=== PATIENT | male | born 1980 | race Caucasian/White ===

== ENCOUNTER 2016-05-20 11:09 | Emergency (ER) | payer BC ==
[2016-05-20] MEDS ORDERED: ASPIRIN 81 MG TABLET, CHEWABLE PO ONE (11:12)
--- NOTE | 2016-05-20 11:13 | ER Document Report ---
ED Medical Screen (RME) - General Stated Complaint: CHEST PAIN Mode of Arrival: Wheelchair Information source: Patient Notes: Patient presents with chest pain. Reports has been going on for a while. Reports he was evaluated previously for chest pain before and he was diagnosed with anxiety. No history of cardiac disease I have greeted and performed a rapid initial assessment of this patient. A comprehensive ED assessment and evaluation of the patient, analysis of test results and completion of the medical decision making process will be conducted by additional ED providers. - Related Data Allergies/Adverse Reactions: No Known Allergies Allergy (Unverified 05/20/16 11:28) Physical Exam - Vital signs Vitals: Temp Pulse Resp BP Pulse Ox 98.1 F 104 H 16 145/99 H 97 05/20/16 11:21 05/20/16 11:21 05/20/16 11:21 05/20/16 11:21 05/20/16 11:21 Course - Vital Signs Vital signs: Temp Pulse Resp BP Pulse Ox 98.1 F 104 H 16 145/99 H 97 05/20/16 11:21 05/20/16 11:21 05/20/16 11:21 05/20/16 11:21 05/20/16 11:21
--- NOTE | 2016-05-20 12:56 | EKG REPORT ---
SEVERITY:- ABNORMAL ECG - SINUS RHYTHM LEFT ATRIAL ABNORMALITY LEFT VENTRICULAR HYPERTROPHY : Confirmed by: Latha Isidro MD 20-May-2016 12:54:47
--- NOTE | 2016-05-20 13:17 | ER Document Report ---
ED Cardiac - General Chief Complaint: Chest Pain Stated Complaint: CHEST PAIN Time seen by provider: 13:07 Mode of Arrival: Wheelchair Information source: Patient Notes: 36 yo smoker, non htn, non dm, non hyperlipedic. FH:neg CAD. c/o intermittent different types of irritating bilateral chest aching, right or left, switches sides. Each episode lasts 15-30 seconds for 4-5 days, associated with tired, fatigue, cold sweat 2 days ago. This has happened off and on several year, but this time it is lasting longer. Nausea 3 days ago. Evaluated in past with EKG and Chest xray and told it was anxiety ([facility]) Feels better after a few beers, 6 daily beer before dinner. Does not consider himself an alcoholic. No drugs. No abd pain. Wants to make sure he is OK. No PCP. At this time he said he had some discomfort in his right lower lateral chest. No sudden onset, No tearing sensation, No leg pain, No SOB, No worsening of the pain in the last 24 hours, has been the same type/intensity for 4 days. TRAVEL OUTSIDE OF THE [place] IN LAST 30 DAYS: No - Related Data Allergies/Adverse Reactions: No Known Allergies Allergy (Unverified 05/20/16 11:28) Past Medical History - General Information source: Patient - Social History Smoking Status: Current Every Day Smoker Chew tobacco use (# tins/day): No Frequency of alcohol use: daily - 6 beers before dinner Drug Abuse: None Lives with: Spouse/Significant other Family History: Reviewed & Not Pertinent Patient has suicidal ideation: No Patient has homicidal ideation: No - Medical History Medical History: Negative Renal/ Medical History: Denies: Hx Peritoneal Dialysis Surgical Hx: Negative Review of Systems - Review of Systems Constitutional: No symptoms reported EENT: No symptoms reported Cardiovascular: See HPI Respiratory: No symptoms reported Gastrointestinal: No symptoms reported Genitourinary: No symptoms reported Male Genitourinary: No symptoms reported Musculoskeletal: No symptoms reported Skin: No symptoms reported Hematologic/Lymphatic: No symptoms reported Neurological/Psychological: No symptoms reported Physical Exam - Vital signs Vitals: Temp Pulse Resp BP Pulse Ox 98.1 F 104 H 16 145/99 H 97 05/20/16 11:21 05/20/16 11:21 05/20/16 11:21 05/20/16 11:21 05/20/16 11:21 Interpretation: Normal - General General appearance: Appears well, Alert In distress: None - HEENT Head: Normocephalic, Atraumatic Eyes: Normal Conjunctiva: Normal Pupils: PERRL Mucous membranes: Normal Neck: Supple. No: Lymphadenopathy - Respiratory Respiratory status: No respiratory distress Chest status: Nontender Breath sounds: Normal Chest palpation: Normal - Cardiovascular Rhythm: Regular Heart sounds: Normal auscultation Murmur: No - Abdominal Inspection: Normal Distension: No distension Bowel sounds: Normal Tenderness: Nontender. No: Tender Organomegaly: No organomegaly - Back Back: Normal, Nontender. No: CVA tenderness - Extremities General upper extremity: Normal inspection, Nontender, Normal color, Normal ROM , Normal temperature General lower extremity: Normal inspection, Nontender, Normal color, Normal ROM , Normal temperature, Normal weight bearing. No: Arvind's sign - Neurological Neuro grossly intact: Yes Cognition: Normal Orientation: AAOx4 [place] Coma Scale Eye Opening: Spontaneous [place] Coma Scale Verbal: Oriented [place] Coma Scale Motor: Obeys Commands Demetri Coma Scale Total: 15 Speech: Normal Motor strength normal: LUE, RUE, LLE, RLE Sensory: Normal - Psychological Associated symptoms: Normal affect, Normal mood - Skin Skin Temperature: Warm Skin Moisture: Dry Skin Color: Normal Skin irregularity: negative: Rash Course - Re-evaluation Re-evalutation: 05/20/16 16:[address] Hayes concerning the history, physical exam, EKG, and labs. Doubt PE, aortic dissection, ACS, or PE due to no sudden onset of pain, no worsening of pain over the last 24 hours, no travel or cancer hx. Will have pt schedule appointment with family pracitice provider for follow up. Advised him to take 81 mg aspirin per day, stop smoking, and decrease the amount of alcohol that he drinks per day. Pain free at this time. - Vital Signs Vital signs: Temp Pulse Resp BP Pulse Ox 98.4 F 90 18 138/96 H 98 05/20/16 17:02 05/20/16 17:02 05/20/16 17:02 05/20/16 17:02 05/20/16 17:02 - Laboratory Result Diagrams: 05/20/16 13:50 05/20/16 13:50 Laboratory results interpreted by me: 05/20/16 05/20/16 13:50 13:50 WBC 10.7 H Calcium 10.4 H ALT 127 H Total Protein 8.4 H Discharge - Discharge Clinical Impression: Elevated blood pressure reading Chest pain Qualifiers: Chest pain type: unspecified Qualified Code(s): R07.9 - Chest pain, unspecified Condition: Good Disposition: HOME, SELF-CARE Instructions: Chest Pain of Unclear Cause ([facility]), Aspirin (Cardiac) ([facility]), Family Physicians / Practices, Stop Smoking ([facility]), High Blood Pressure ([facility]) Additional Instructions: call and schedule a family practice doctor appointment for blood pressure recheck, further care. return to ER if the pain persists, gets worse. aspirin 81mg per day stop smoking drink less alcohol
[2016-05-20 14:10] LABS: ABSOLUTE EOSINOPHILS # (AUTO) 0.1 10^3/uL (0.0-0.6); ABSOLUTE LYMPHOCYTES (AUTO) 2.3 10^3/uL (0.5-4.7); ABSOLUTE MONOCYTES (AUTO) 0.9 10^3/uL (0.1-1.4); ABSOLUTE NEUT (AUTO) 7.2 10^3/uL (1.7-8.2); BASOPHILS % (AUTO) 0.4 % (0-2); EOSINOPHILS % (AUTO) 1.3 % (0-6); HEMATOCRIT 49.6 % (37.9-51.0); HGB HCT DIFFERENCE -1.6; LYMPHOCYTES % (AUTO) 21.9 % (13-45); MEAN CORPUSCULAR HEMOGLOBIN 29.7 pg (27.0-33.4); MEAN CORPUSCULAR HGB CONC 32.2 g/dL (32.0-36.0); MEAN CORPUSCULAR VOLUME 92 fl (80-97); MONOCYTES % (AUTO) 8.6 % (3-13); RED BLOOD COUNT 5.37 10^6/uL (4.35-5.55); RED CELL DISTRIBUTION WIDTH 12.7 % (11.5-14.0); SEGMENTED NEUTROPHILS % (AUTO) 67.8 % (42-78); WHITE BLOOD COUNT 10.7 10^3/uL (4.0-10.5)
[2016-05-20 14:22] LABS: ALANINE AMINOTRANSFERASE 127 U/L (21-72); ALBUMIN 4.6 g/dL (3.5-5.0); ALKALINE PHOSPHATASE 72 U/L (38-126); ANION GAP 11 (5-19); ASPARTATE AMINO TRANSFERASE 52 U/L (17-59); BILIRUBIN,TOTAL 0.7 mg/dL (0.2-1.3); BLOOD UREA NITROGEN 13 mg/dL (7-20); CALCIUM 10.4 mg/dL (8.4-10.2); CARBON DIOXIDE 29 mmol/L (22-30); CHLORIDE 100 mmol/L (98-107); CREATINE KINASE 85 U/L (55-170); CREATININE RESULT 0.76 mg/dL (0.52-1.25); GLUCOSE 87 mg/dL (75-110); POTASSIUM 4.7 mmol/L (3.6-5.0); SODIUM 140.4 mmol/L (137-145); TOTAL PROTEIN 8.4 g/dL (6.3-8.2)
[2016-05-20 14:34] LABS: CREATINE KINASE MB 0.77 ng/mL (<4.55)
[2016-05-20 14:35] LABS: TROPONIN I < 0.012 ng/mL
[2016-05-20 17:02] VITALS: BP 138/96
== END 2016-05-20 17:02 | disposition home or self-care (01) ==
LOC: ER 11:09
DX: R07.9 Chest pain, unspecified (principal); R03.0 Elevated blood-pressure reading, without diagnosis of hypertension; R53.83 Other fatigue; R61 Generalized hyperhidrosis; F17.200 Nicotine dependence, unspecified, uncomplicated
CPT/HCPCS: 36415; 71020; 80053; 82550; 82553; 84484; 85025; 93005; 93010; 99285